=== PATIENT | female | born 1990 | race Two or more races ===

== ENCOUNTER → 2017-07-21 | Outpatient (CLI) | payer OTHER | END | disposition home or self-care (01) | LOC: PPH VACUNA 09:53 | DX: Z23 Encounter for immunization (principal) ==

== ENCOUNTER → 2017-11-05 | Emergency (ER) | payer OTHER ==
[~2017-11-05] VITALS: Ht 170.2 cm; Wt 54.9 kg
[~2017-11-05] MED LIST: PROZAC10 MG
== END | disposition left against medical advice (07) ==
LOC: ER 14:45
DX: Z53.20 Procedure and treatment not carried out because of patient's decision for unspecified reasons (principal)

== ENCOUNTER 2024-07-31 15:33 | Emergency (ER) | payer OTHER ==
[~2024-07-31] VITALS: Ht 170.2 cm; Wt 59.0 kg
[2024-07-31 16:12] VITALS: BP 149/91; O2SAT 99
[2024-07-31 17:13] LABS: HEMATOCRIT 39.4 % (36.0-45.00); HEMOGLOBIN 13.7 g/dL (12.0-15.00); MEAN CELL VOLUME 87.7 fL (80.00-100.00); MEAN CORPUSCULAR HEMOGLOBIN 30.4 pg (27.00-32.0); MEAN CORPUSCULAR HGB CONC 34.6 g/dl (32.0-36.0); PLATELET COUNT 287 K/uL (150-450)
[2024-07-31 17:29] LABS: PH,URINE 5.5 (5.0-8.0); URINE APPEARANCE Clear; URINE BILIRRUBIN Negative (NEGATIVE); URINE BLOOD Negative; URINE COLOR Yellow; URINE GLUCOSE Negative (NEGATIVE); URINE KETONE 15 (NEGATIVE); URINE LEUKOCYTE Negative; URINE NITRATE Negative; URINE PROTEIN Negative (NEGATIVE); URINE UROBILINOGEN 0.2 E.U./dl
[2024-07-31 17:34] LABS: URINE BACTERIA 85.6 uL (0.0-1933); URINE RBC 3.3 uL (0.0-20.8)
[2024-07-31 17:43] LABS: URINE EPITHELIAL CELLS 0.7 uL (0.0-38.8); URINE WBC 1.2 uL (0.0-23.2)
[2024-07-31 17:45] LABS: ALBUMIN 4.4 gm/dL (3.4-5.0); BILIRUBIN TOTAL 0.46 mg/dL (0.3-1.2); CALCIUM 9.2 mg/dL (8.5-10.1); CREATININE SERUM 0.77 mg/dL (0.55-1.02); GFR 84.82; GLOBULINA 3.6 G/DL (2.4-3.5); POTASSIUM 4.38 mEq/L (3.5-5.1)
== END 2024-07-31 18:22 | disposition home or self-care (01) ==
LOC: ER 16:49
PROVIDERS: General Practice
DX: R10.32 Left lower quadrant pain (principal); Z88.6 Allergy status to analgesic agent